=== PATIENT | female | born 1980 | race Caucasian/White ===

== ENCOUNTER 2016-09-05 20:43 | Observation (INO) | payer MEDICAID, OTHER ==
[~2016-09-05 20:43] MED LIST: BACT2OIN TOP; PHEN12.5 PO; SULF1TAB47 PO; Z.0.NO CURRENT MEDS
[2016-09-05 21:11] VITALS: BP 117/70; PULSE 72; RESP 16; TEMP 98.2
[2016-09-05 21:19] VITALS: BP 151/80; PULSE 71; RESP 16; O2SAT 100
[2016-09-05 21:27] VITALS: O2SAT 100
[2016-09-05] MEDS ORDERED: ASPIRIN 81 MG CHEW TAB PO ONE (21:30)
[2016-09-05] MEDS ORDERED: SODIUM CHLORIDE 0.9% FLUSH 5 ML FLUSH IVF PRN ×2 (21:30→23:00)
--- NOTE | 2016-09-05 21:40 | PD ---
HPI Chief Complaint: Chest Pain Time Seen by Provider: 21:36 Travel History International Travel<30 days: No Contact w/Intl Traveler<30days: No Traveled to known affect area: No History of Present Illness HPI Patient comes in complaining of left-sided chest pain that began around 1930 today while at work. Patient states the most intense chest pain last about 5 minutes and only has a slight pinching sensation left anterior chest wall. Patient reports associated headache, nausea, clamminess, and shortness of breath with this. Patient states everything has completely resolved with the exception of her headache. Patient denies doing anything for this prior to coming to the emergency department. Denies any medical history or family history of heart disease. Patient does report that she's been working a lot lately not sleeping much. Patient reports she only slept 6 hours of the past 4 days. PFSH Past Medical History Medical History: Denies Significant Hx Diminished Hearing: No Tetanus Vaccination: < 5 Years Influenza Vaccination: No ?: Not : 3 Para: 3 Tubal Ligation: Yes Past Surgical History Surgical History: No Previous Surgery Social History Alcohol Use: No Tobacco Use: No Substance Use: No Allergies-Medications (Allergen,Severity, Reaction): Coded Allergies: No Known Allergies (Verified , 02/28/13) Reported Meds & Prescriptions Reported Meds & Active Scripts Active No Active Prescriptions or Reported Medications Review of Systems Except as stated in HPI: all other systems reviewed are Neg Physical Exam Narrative GENERAL: Well-developed, overly nourished, in no acute distress, and non-ill appearing. SKIN: Warm and dry. HEAD: Atraumatic. Normocephalic. EYES: Pupils equal and round. EOMI. No scleral icterus. No injection or drainage. ENT: No nasal bleeding or discharge. Mucous membranes pink and moist. NECK: Trachea midline. Supple. No nuclear rigidity. CARDIOVASCULAR: Regular rate and rhythm. No murmur appreciated. RESPIRATORY: No accessory muscle use. No respiratory distress. Clear to auscultation. Breath sounds equal bilaterally. GASTROINTESTINAL: Abdomen soft, non-tender, nondistended. Hepatic and splenic margins not palpable. Normal bowel sounds 4. No pulsatile mass. MUSCULOSKELETAL: No obvious deformities. No clubbing. No cyanosis. No edema. Full range of motion. NEUROLOGICAL: Awake and alert. No obvious cranial nerve deficits. Motor grossly within normal limits. Normal speech. PSYCHIATRIC: Appropriate mood and affect; insight and judgment normal. Data Data Last Documented VS Vital Signs Date Time Temp Pulse Resp B/P Pulse Ox O2 Delivery O2 Flow Rate FiO2 09/05/16 21:27 100 Room Air 09/05/16 21:19 71 16 151/80 09/05/16 21:11 98.2 Orders Electrocardiogram (09/05/16 21:23) Basic Metabolic Panel (Bmp) (09/05/16 21:23) Ckmb (Isoenzyme) Profile (09/05/16 21:23) Complete Blood Count With Diff (09/05/16 21:23) Magnesium (Mg) (09/05/16 21:23) Prothrombin Time / Inr (Pt) (09/05/16 21:23) Act Partial Throm Time (Ptt) (09/05/16 21:23) Troponin I (09/05/16 21:23) Chest, Single Ap (09/05/16 21:23) Ecg Monitoring (09/05/16 21:23) Bilateral Bp Monitoring (09/05/16 21:23) Iv Access Insert/Monitor (09/05/16 21:23) Oximetry (09/05/16 21:23) Oxygen Administration (09/05/16 21:23) Aspirin Chew (Aspirin Chew) (09/05/16 21:30) Sodium Chloride 0.9% Flush (Ns Flush) (09/05/16 21:30) Admit Order (Ed Use Only) (09/05/16 22:54) Place In Observation (09/05/16 22:54) Activity Bed Rest With Brp (09/05/16 22:54) Vital Signs (Adult) Q4H (09/05/16 22:54) Cardiac Rhythm .As Directed (09/05/16 22:54) ^ Notify Dr: Other .PRN (09/05/16 22:54) ^ Notify Dr. Parameters (09/05/16 22:54) Resp Oxygen Nasal Cannula (09/05/16 ) Ckmb (Isoenzyme) Profile (09/06/16 00:35) Ckmb (Isoenzyme) Profile (09/06/16 03:35) Troponin I (09/06/16 00:35) Labs Laboratory Tests Test 09/05/16 21:35 White Blood Count 13.1 TH/MM3 Red Blood Count 4.61 MIL/MM3 Hemoglobin 12.2 GM/DL Hematocrit 36.2 % Mean Corpuscular Volume 78.6 FL Mean Corpuscular Hemoglobin 26.4 PG Mean Corpuscular Hemoglobin 33.6 % Concent Red Cell Distribution Width 15.4 % Platelet Count 308 TH/MM3 Mean Platelet Volume 8.4 FL Neutrophils (%) (Auto) 72.1 % Lymphocytes (%) (Auto) 20.6 % Monocytes (%) (Auto) 5.3 % Eosinophils (%) (Auto) 1.3 % Basophils (%) (Auto) 0.7 % Neutrophils # (Auto) 9.5 TH/MM3 Lymphocytes # (Auto) 2.7 TH/MM3 Monocytes # (Auto) 0.7 TH/MM3 Eosinophils # (Auto) 0.2 TH/MM3 Basophils # (Auto) 0.1 TH/MM3 CBC Comment DIFF FINAL Differential Comment Prothrombin Time 10.0 SEC Prothromb Time International 0.9 RATIO Ratio Activated Partial 19.8 SEC Thromboplast Time Sodium Level 141 MEQ/L Potassium Level 3.8 MEQ/L Chloride Level 105 MEQ/L Carbon Dioxide Level 27.7 MEQ/L Anion Gap 8 MEQ/L Blood Urea Nitrogen 12 MG/DL Creatinine 1.07 MG/DL Estimat Glomerular Filtration 57 ML/MIN Rate Random Glucose 87 MG/DL Calcium Level 8.9 MG/DL Magnesium Level 2.2 MG/DL Total Creatine Kinase 64 U/L Troponin I LESS THAN 0.02 NG/ML MDM Medical Decision Making Medical Screen Exam Complete: Yes Emergency Medical Condition: Yes Interpretation(s) EKG reviewed by Dr. Beckford, shows sinus rhythm with ventricular rate of 62. No STEMI. Differential Diagnosis Acute coronary syndrome, noncardiac chest pain, electrolyte abnormality, arrhythmia, other Narrative Course Patient was seen and examined. Initial laboratory, radiological, and EKG is obtained and reviewed. Patient was given aspirin. Patient is reassessed reports improvement of her headache and continued resolution of her chest pain. Discussed patient with Dr. Beckford, who is an agreement with plan of care and disposition. Discussed all findings and plan care with patient who is agreeable for admission. All questions were answered. Diagnosis Primary Impression: Chest pain Qualified Code: R07.9 - Chest pain, unspecified type Admitting Information Admitting Physician Requests: Observation Scripts No Active Prescriptions or Reported Meds Condition: Stable Danish Peng Sep 05, 2016 21:40
[2016-09-05 22:15] LABS: AUTOMATED NEUTROPHIL # 9.5 TH/MM3 (1.8-7.7); BASOPHIL # 0.1 TH/MM3 (0-0.2); BASOPHIL % 0.7 % (0.0-2.0); EOSINOPHIL # 0.2 TH/MM3 (0-0.4); EOSINOPHIL % 1.3 % (0.0-4.0); HEMATOCRIT 36.2 % (35.0-46.0); HEMO FLAGS DIFF FINAL; LYMPH % 20.6 % (9.0-44.0); LYMPHOCYTE # 2.7 TH/MM3 (1.0-4.8); MEAN CELL VOLUME 78.6 FL (80.0-100.0); MEAN CORPUSCULAR HEMOGLOBIN 26.4 PG (27.0-34.0); MEAN CORPUSCULAR HGB CONC 33.6 % (32.0-36.0); MONO % 5.3 % (0.0-8.0); NEUT % 72.1 % (16.0-70.0); PLATELET COUNT 308 TH/MM3 (150-450); RED BLOOD COUNT 4.61 MIL/MM3 (4.00-5.30); RED CELL DISTRIBUTION WIDTH 15.4 % (11.6-17.2); WHITE BLOOD COUNT 13.1 TH/MM3 (4.0-11.0)
[2016-09-05 22:25] LABS: APTT (PATIENT) 19.8 SEC (24.3-30.1); INTERNATIONAL NORMALIZED RATIO 0.9 RATIO
[2016-09-05 22:37] LABS: ANION GAP 8 MEQ/L (5-15); BICARBONATE 27.7 MEQ/L (21.0-32.0); BLOOD UREA NITROGEN 12 MG/DL (7-18); CHLORIDE 105 MEQ/L (98-107); GLOMERULAR FILTRATION RATE 57 ML/MIN (>89); MAGNESIUM 2.2 MG/DL (1.5-2.5); POTASSIUM 3.8 MEQ/L (3.5-5.1); SODIUM (NA) 141 MEQ/L (136-145)
--- NOTE | 2016-09-05 22:44 | RADRPT ---
EXAM DATE/TIME: 09/05/2016 21:31 [facility] COMPARISON: No previous studies available for comparison. INDICATIONS : Chest pain. MEDICAL HISTORY : None. SURGICAL HISTORY : Tubal ligation. ENCOUNTER: Initial ACUITY: 1 day PAIN SCORE: 7/10 LOCATION: Bilateral chest FINDINGS: A single view of the chest demonstrates the lungs to be symmetrically aerated without evidence of mas s, infiltrate or effusion. The cardiomediastinal contours are unremarkable. Osseous structures are intact. CONCLUSION: No acute disease. Rakan Amezcua MD on September 05, 2016 at 22:43 Board Certified Radiologist. This report was verified electronically.
[2016-09-05 22:50] LABS: CREATINE KINASE 64 U/L (26-192)
[2016-09-05 23:00] VITALS: BP 116/61; PULSE 71; RESP 16; O2SAT 95; O2SAT 96
[2016-09-06] VITALS (9 sets, daily range): BP systolic 96–116; BP diastolic 52–72; PULSE 52–75; RESP 16–19; TEMP 96.7–98; O2SAT 95–100
[2016-09-06 01:27] LABS: CREATINE KINASE 54 U/L (26-192)
[2016-09-06 03:48] LABS: CREATINE KINASE 61 U/L (26-192)
[2016-09-06] MEDS ORDERED: SODIUM CHLORIDE 0.9% FLUSH 5 ML FLUSH IVF SCH (09:00)
--- NOTE | 2016-09-06 09:11 | HHI.DCPOC ---
Discharge Care Plan Diagnosis: (1) Musculoskeletal chest pain (2) Situational stress Goals to Promote Your Health * To prevent worsening of your condition and complications * To maintain your health at the optimal level Directions to Meet Your Goals Take your medications as prescribed Follow your dietary instruction Follow activity as directed Keep your appointments as scheduled Take your immunizations and boosters as scheduled If your symptoms worsen call your PCP, if no PCP go to Urgent Care Center or Emergency Room Smoking is Dangerous to Your Health. Avoid second hand smoke Call the 24-hour hour crisis hotline for domestic abuse at Karin Enriquez Sep 06, 2016 09:11
--- NOTE | 2016-09-06 10:36 | MH ---
cc: BYRON MORROW MD DATE OF ADMISSION: 09/05/2016 DATE OF 1980 CHIEF COMPLAINT Chest pain HISTORY OF PRESENT ILLNESS This is a 36-year-old patient who presents to the emergency room for chest discomfort that started yesterday evening while at work. The patient states pain actually started in her left scapula area that radiated to her chest. She first thought her bra was maybe to tight and removed her bra and then she continued to have some heaviness that lasted throughout the evening. There was no radiation. No associated symptoms, although she did complain initially that she had a headache and some nausea. No known precipitating factors or relieving factors. The patient does state she has been working long hours at two jobs and not sleeping very much lately. PAST MEDICAL HISTORY None PAST SURGICAL HISTORY None FAMILY HISTORY Actually is noncontributory for any early onset cardiovascular disease. SOCIAL HISTORY She is a lifelong nonsmoker. Denies any alcohol or illegal drug use. No known hypertension, diabetes or hyperlipidemia and she is quite active, runs the treadmill on a regular basis, in fact, she has done this the past two weeks was and she runs about a six miles an hour, she does not develop any chest discomfort during this time. PAST CARDIAC TESTING None ALLERGIES She has no allergies to medicine. MEDICATIONS She does not take any medicines or supplements. REVIEW OF SYSTEMS GENERAL: No fatigue, weakness, fevers, chills, recent illness. HEENT: No headache or visual changes, dysphagia. CARDIOVASCULAR: As stated above. She is currently chest pain-free. No palpitations, intermittent leg pain or dizziness. RESPIRATORY: No shortness of breath, cough, wheeze, hemoptysis or known asthma. ABDOMEN: No bowel changes, diarrhea, constipation, nausea, or vomiting. Reports a good appetite. : No dysuria. EXTREMITIES: No lower leg edema or pain. MUSCULOSKELETAL: No current discomfort. No change in her ROM. No difficulty with balance, motor or sensory deficits, loss of consciousness. PSYCH: No anxiety or depression. She is under situational stress working two full-time job and states she has some family issues that she is dealing with at this time. SKIN: No concerning lesions or rashes. PHYSICAL EXAMINATION VITAL SIGNS: Temperature 98, pulse 74, respiratory 18, blood pressure 115/69 and she is 100% on room air. GENERAL: She is alert, well-nourished, well-developed in no acute distress, pleasant female. HEAD: Normocephalic, atraumatic. EYES: Sclerae clear. Pupils are equal and round. ENT: Mucous membranes are pink and moist. CARDIOVASCULAR: RRR without murmur, rub or gallop. S1-S2. No S3. No S4. RESPIRATORY: Clear lungs throughout bilateral with no crackles, wheeze or rhonchi. She is nonlabored, has a symmetrical chest rise. ABDOMEN: Soft, nontender, nondistended. No masses. Positive bowel tones. EXTREMITIES: Pulses +2 x4. No dependent edema. NEUROLOGIC: CN II-XII is grossly intact. Motor strength 5/5. PSYCH: She is alert and oriented x3. She has a pleasant affect appropriate to mood, insight and judgment. SKIN No lesions or rashes. She has normal turgor, normal texture. Skin is warm and dry. LABORATORY CBC has a WBC of 13.1 and MCV of 78.6, MCH of 26.4, neutrophil percentage 72%, otherwise unremarkable. Chemistry is unremarkable. Three sets of cardiac enzymes are negative. Coagulations unremarkable. A chest x-ray read by the radiologist has no acute disease. Three EKG's show normal sinus rhythm with no ST or T segment changes and normal axis. ASSESSMENT/PLAN 1. Chest pain. The patient has been admitted to the chest pain center, was ruled out with three sets of EKG's and cardiac enzymes and monitored overnight. She was seen and evaluated by Dr. Byron Morrow. Discussed with the patient in length the unlikelihood of her having cardiovascular disease as she has no risk factors and routinely exercises on the treadmill and it does not develop any chest discomfort. No further cardiac testing is warranted at this time. The patient is agreeable to this plan of care and we will follow up her primary care accordingly. 2. Situational stress. Discussed with the patient in length the discomfort in her chest. It could be due to the working two jobs and not sleeping well. She has been encouraged to get plenty of sleep, drink plenty of fluids, and to eat a balanced diet and take care of herself. She is agreeable to this plan of care. She is encouraged to return to the emergency room for any further chest discomfort and or concerns. Dictated by ADARSH Banks Yao Nettles/DJL /9:45 AM /10:33 AM
--- NOTE | 2016-09-06 17:20 | EKG ---
Date Performed: 09/05/2016 Time Performed: 21:24:30 PTAGE: 36 years EKG: Sinus rhythm WITH SINUS ARRHYTHMIA Since previous tracing, no significant change noted NORMAL ECG PREVIOUS TRACING : 02/28/2013 17.16 DOCTOR: Sandeep Rome Interpretating Date/Time 09/06/2016 17:19:38
--- NOTE | 2016-09-06 17:20 | EKG ---
Date Performed: 09/06/2016 Time Performed: 00:42:18 PTAGE: 36 years EKG: Sinus rhythm Since previous tracing, no significant change noted NORMAL ECG PREVIOUS TRACING : 09/05/2016 21.24 DOCTOR: Sandeep Rome Interpretating Date/Time 09/06/2016 17:20:00
--- NOTE | 2016-09-06 17:22 | EKG ---
Date Performed: 09/06/2016 Time Performed: 03:31:36 PTAGE: 36 years EKG: Sinus rhythm Since previous tracing, no significant change noted NORMAL ECG PREVIOUS TRACING : 09/06/2016 00.42 DOCTOR: Sandeep Rome Interpretating Date/Time 09/06/2016 17:20:40
== END 2016-09-06 11:29 | disposition home or self-care (01) ==
LOC: NEPC 20:43 → NEDA 22:58 → NEPFCDU 09-06 01:13
PROVIDERS: ADMIT Internal Medicine Cardiovascular Disease; ATTEND Internal Medicine Cardiovascular Disease
DX: R07.89 Other chest pain (principal); R11.0 Nausea; R06.02 Shortness of breath; R51 Headache
CPT/HCPCS: 71010; 80048; 82550; 83735; 84484; 85025; 85610; 85730; 93005; 99285; G0378